=== PATIENT | male | born 1995 | race Caucasian/White ===

== ENCOUNTER 2024-09-25 10:19 | Emergency (ER) | payer OTHER ==
[2024-09-25 11:36] LABS: #Basophils 0.04 10x3/uL (0.0-0.2); #Monocytes 0.68 10x3/uL (0.0-1.1); #Neutrophils 6.11 10x3/uL (1.5-8.4); %Basophils 0.4 % (0.0-2.0); %Lymphocytes 27.9 % (18.0-47.0); %Neutrophils 63.4 % (40.0-75.0); Hematocrit 47.3 % (38.8-50.0); Hemoglobin 16.1 g/dL (13.5-17.5); Mean Corpuscular Hemoglobin 30.5 pg (27.0-33.0); Mean Corpuscular Volume 89.6 fL (81.2-95.1); Mean Platelet Volume 9.6 fL (7.4-10.4); Platelet Count 293 10x3/uL (150-450); RBC Distribution Width 12.7 % (11.5-14.5); Red Blood Cell (RBC) Count 5.28 10x6/uL (4.32-5.72); White Blood Cell (WBC) Count 9.7 10x3/uL (3.5-10.5)
[2024-09-25 11:47] LABS: ALT (SGPT) 33 U/L (8-55); AST (SGOT) 41 U/L (5-34); Albumin 4.4 g/dL (3.5-5.0); Alkaline Phosphatase 49 U/L (40-110); Anion Gap 12 mmol/L (10-20); BUN (Urea Nitrogen) 19 mg/dL (8.9-20.6); Bilirubin, Total 0.9 mg/dL (0.2-1.2); Calc. Creatinine Clearance 0 mL/min (70-130); Calcium 9.7 mg/dL (7.8-10.44); Carbon Dioxide 23 mmol/L (22-29); Chloride 108 mmol/L (98-107); Estimated GFR 98; Globulin 2.4 g/dL (2.4-3.5); Glucose 85 mg/dL (70-105); Potassium 4.4 mmol/L (3.5-5.1); Protein, Total 6.8 g/dL (6.0-8.3); Sodium 139 mmol/L (136-145)
[2024-09-25 11:51] LABS: Troponin I Less than 0.010 ng/mL (< 0.028)
== END 2024-09-25 12:40 | disposition home or self-care (01) ==
LOC: CSHERS 10:19
DX: R55 Syncope and collapse (principal); R51.9 Headache, unspecified
CPT/HCPCS: 36415; 70450; 80053; 84484; 85025; 93005

== ENCOUNTER 2024-11-14 15:16 | Emergency (ER) | payer OTHER ==
[2024-11-14] MEDS ORDERED: Bacitracin 1 PK ONE (15:38)
[2024-11-14] MEDS ORDERED: Sulfameth/Trimethoprim DS 800-160mg TAB ONE (15:39)
[2024-11-14] MEDS ORDERED: Boostrix 0.5 ML (Tdap) VIAL (>/=7 yrs of age) ONE (15:39)
== END 2024-11-14 15:54 | disposition home or self-care (01) ==
LOC: CSHERS 15:16
DX: S51.811A Laceration without foreign body of right forearm, initial encounter (principal); Z23 Encounter for immunization; X58.XXXA Exposure to other specified factors, initial encounter
CPT/HCPCS: 90471; 90715